=== PATIENT | male | born 1955 | race Caucasian/White ===

== ENCOUNTER 2016-06-06 05:38 | Day surgery (SDC) | payer BC ==
[~2016-06-06] VITALS: Ht 185.4 cm; Wt 102.0 kg
[~2016-06-06 05:38] MED LIST: ASPERDRINK81 MG PO; ASPIR 8181 M1 PO; B COMPLETE1 EACH PO; FLONASE16 G1 BOTH NARES; HYDROCHLOROTH12.5 M3; HYDROCHLOROTHIA25 MG PO; KRILL OIL500 MG PO; LEXAPRO10 MG PO; LOTREL 5/101 CAPSULE; LOTREL 5/101 CAPSULE PO; NEXIUM20 MG PO; NEXIUM40 MG PO; PRAVACHOL40 MG PO
[2016-06-06 06:14] VITALS: BP 136/84
[2016-06-06] MEDS ORDERED: COLACE100 MG PO (10:35)
[2016-06-06] MEDS ORDERED: PERCOCET 5/31 TABLET PO (10:35)
[2016-06-06 11:59] VITALS: BP 104/68
[2016-06-06 13:04] VITALS: BP 105/60
[2016-06-06 14:55] VITALS: BP 128/79
[2016-06-06 18:30] VITALS: BP 122/83
== END 2016-06-06 18:45 | disposition home or self-care (01) ==
LOC: SDC 05:38
PROC: 0YUA4JZ Supplement Bilateral Inguinal Region with Synthetic Substitute, Percutaneous Endoscopic Approach (ICD-10-PCS; principal; 2016-06-06)
PROC: 0WBF4ZZ Excision of Abdominal Wall, Percutaneous Endoscopic Approach (ICD-10-PCS; principal; 2016-06-06)
DX: K40.91 Unilateral inguinal hernia, without obstruction or gangrene, recurrent (principal); K40.90 Unilateral inguinal hernia, without obstruction or gangrene, not specified as recurrent; I35.0 Nonrheumatic aortic (valve) stenosis; I10 Essential (primary) hypertension; E78.2 Mixed hyperlipidemia; I71.2 Thoracic aortic aneurysm, without rupture; R73.03 Prediabetes; K21.9 Gastro-esophageal reflux disease without esophagitis; Z79.82 Long term (current) use of aspirin; Z85.828 Personal history of other malignant neoplasm of skin; Z82.69 Family history of other diseases of the musculoskeletal system and connective tissue; Z80.8 Family history of malignant neoplasm of other organs or systems; Z82.5 Family history of asthma and other chronic lower respiratory diseases; Z82.49 Family history of ischemic heart disease and other diseases of the circulatory system; Z88.8 Allergy status to other drugs, medicaments and biological substances; Z87.891 Personal history of nicotine dependence
CPT/HCPCS: 88302; C1727; C1781; J0131; J0330; J0690; J1100; J1170; J2250; J2405; J2710; J3010